=== PATIENT | male | born 1985 | race Caucasian/White ===

== ENCOUNTER 2018-02-05 13:51 | Emergency (ER) | payer SELFPAY ==
[~2018-02-05] VITALS: Ht 188 cm; Wt 120.0 kg
[2018-02-05 14:07] VITALS: BP 138/80; PULSE 88; RESP 16; TEMP 98.3; O2SAT 99
--- NOTE | 2018-02-05 15:45 | PD ---
HPI Chief Complaint: Injury Time Seen by Provider: 15:28 Travel History International Travel<30 days: No Contact w/Intl Traveler<30days: No Traveled to known affect area: No History of Present Illness HPI 32-year-old male presents to the emergency room for evaluation of chronic right upper extremity pain. He denies any trauma or injury to the area. Patient states for the past month he has had severe pain localized to the left dorsal hand with radiation into the wrist. Pain is worsened with range of motion of the hand and wrist. He states that it sometimes spontaneously twists and his knuckles fold over and has to manually unfold them. He has been taking naproxen without relief in symptoms. He has been to the emergency room 2 times for this condition and had 2 x-rays that are unremarkable. He was told to follow-up as an outpatient for further investigation but has not done so because he does not have insurance or primary care physician. He denies any paresthesias. Patient does report multiple traumas, fractures, and surgeries to the left hand. History Social History Alcohol Use: No Tobacco Use: No Allergies-Medications Reported Meds & Prescriptions Reported Meds & Active Scripts Active Review of Systems Except as stated in HPI: all other systems reviewed are Neg Physical Exam Narrative GENERAL: Well-nourished, well-developed male in no acute distress. Afebrile. Ambulatory. SKIN: No rashes, ecchymoses or lesions. Warm and dry. HEAD: Normocephalic. EYES: No scleral icterus. No injection or drainage. NECK: Supple, trachea midline. No JVD or lymphadenopathy. CARDIOVASCULAR: Regular rate and rhythm without murmurs, gallops, or rubs. RESPIRATORY: Breath sounds equal bilaterally. No accessory muscle use. MUSCULOSKELETAL: No cyanosis. No obvious deformity or edema. Full range of motion of the left hand and wrist with some pain. Tenderness to palpation of dorsal fourth and fifth MCP joints. 2+ radial pulse. Less than 2 second capillary refill distally. Data Data Last Documented VS Vital Signs Date Time Temp Pulse Resp B/P (MAP) Pulse Ox O2 Delivery O2 Flow Rate FiO2 02/05/18 14:07 98.3 88 16 138/80 (99) 99 MDM Medical Screen Exam Complete: Yes Emergency Medical Condition: No Differential Diagnosis Chronic wrist pain Narrative Course 32-year-old male presents to the emergency room for evaluation of left hand pain for the past month. Denies trauma or injury to the area. He has sisters multiple traumas, surgeries, and fractures to the area. He has had 2 negative x -rays in the past month. Physical exam is unremarkable. Left upper extremity is neurovascular intact with 2+ radial pulse. He has full range of motion. No obvious deformity. Patient was informed he may need outpatient imaging such as MRI or at follow-up with a hand surgeon for this condition and that there is no emergency at this time. A medical screening exam was performed: At the time of evaluation the presenting medical condition was determined not to be of an emergent nature. The patient was given the option of receiving additional care, but declined. Patient was given options for additional community resources from which to obtain care. The Patient Has Been advised to seek medical attention for their presenting complaint. The patient has been advised to return to the ER at any time if an emergent condition develops. Primary Impression: Encounter for medical screening examination Disposition: 01 DISCHARGE HOME Condition: Stable Viv Gutierrez Feb 05, 2018 15:45
== END 2018-02-05 15:59 | disposition left against medical advice (07) ==
LOC: NEPK 13:51
DX: M79.601 Pain in right arm (principal)
CPT/HCPCS: 99281